=== PATIENT | male | born 1965 | race Two or more races ===

== ENCOUNTER 2022-12-20 07:35 | Day surgery (SDC) | payer OTHER ==
[~2022-12-20] VITALS: Ht 180.3 cm; Wt 85.3 kg
[~2022-12-20 07:35] MED LIST: DIVALPROEX SOD500 M1 PO; ENALAPRIL MALEA10 MG PO; RESTORIL15 M1 PO; SILDENAFIL CIT100 MG PO; XIFAXAN550 MG PO; [UNRECOGNIZED DRUG - OTHER] PO; [UNRECOGNIZED DRUG - OTHER] PO
[2022-12-20] MEDS ORDERED: OXYC1TAB9 PO (12:12)
== END 2022-12-20 16:35 | disposition home or self-care (01) ==
LOC: CIR.AMB 07:35
PROVIDERS: ATTEND Surgery
DX: K62.5 Hemorrhage of anus and rectum (principal); K64.4 Residual hemorrhoidal skin tags; K64.8 Other hemorrhoids; K64.2 Third degree hemorrhoids; Z20.822 Contact with and (suspected) exposure to COVID-19; I10 Essential (primary) hypertension

== ENCOUNTER 2023-05-03 05:25 | Day surgery (SDC) | payer OTHER ==
[~2023-05-03 05:25] MED LIST changes: +DESVENLAFAXINE25 MG PO; +OXYC1TAB9 PO
[2023-05-03] MEDS ORDERED: OXYC1TAB9 PO (09:28)
== END 2023-05-03 13:35 | disposition home or self-care (01) ==
LOC: CIR.AMB 05:25
PROVIDERS: ATTEND Surgery
DX: K60.1 Chronic anal fissure (principal); K60.3 Anal fistula; K64.4 Residual hemorrhoidal skin tags; K64.2 Third degree hemorrhoids; K62.89 Other specified diseases of anus and rectum; K62.5 Hemorrhage of anus and rectum; I10 Essential (primary) hypertension; Z20.822 Contact with and (suspected) exposure to COVID-19